=== PATIENT | female | born 1935 ===

== ENCOUNTER 2018-12-09 15:34 | Emergency (ER) | payer MEDICARE, OTHER ==
[2018-12-09 15:34] VITALS: PULSE 58
[2018-12-09 15:41] VITALS: BMI 41.1
[2018-12-09] MEDS ORDERED: Albuterol 0.083% Inhal Sol (2.5 mg/3 mL) UD IH STA ×3 (16:20→18:00)
[2018-12-09] MEDS ORDERED: Albuterol-Ipratrop 3 mg / 0.5 (3 ml) UD INH STA (16:20)
[2018-12-09] MEDS ORDERED: Albuterol-Ipratrop 3 mg / 0.5 (3 ml) UD ONE ×2 (16:26→19:02)
[2018-12-09 16:50] LABS: BASO % 0.5 % (0.0-2.0); EOS # 0.1 K/uL (0.0-0.7); EOS % 1.6 % (0.0-4.0); HEMOGLOBIN 11.7 g/dL (11.0-16.0); LYMPH # 2.3 K/uL (1.0-4.3); LYMPH % 26.2 % (20.0-40.0); MEAN CORPUSCULAR HEMOGLOBIN 28.4 pg (27.0-31.0); MEAN CORPUSCULAR HGB CONC 32.1 g/dL (33.0-37.0); MEAN PLATELET VOLUME 9.2 fL (7.2-11.7); MONO # 0.8 K/uL (0.0-0.8); MONO % 9.5 % (0.0-10.0); NEUT # 5.5 K/uL (1.8-7.0); NEUT % 62.2 % (50.0-75.0); NRBC % 0.1 % (0.0-2.0); RBC 4.12 Mil/uL (3.80-5.20); RED CELL DISTRIBUTION WIDTH 14.9 % (11.5-14.5); WHITE BLOOD COUNT 8.9 K/uL (4.8-10.8)
[2018-12-09 16:57] LABS: MEAN CELL VOLUME 88.3 fL (81.0-99.0)
[2018-12-09 16:58] LABS: VENOUS BLOOD GAS PCO2 63 mmHg (40-60); VENOUS BLOOD GAS PO2 45 mm/Hg (30-55); VENOUS BLOOD PH 7.35 (7.32-7.43)
[2018-12-09 16:58] LABS: INR 1.2; PROTHROMBIN TIME 12.9 SECONDS (9.7-12.2)
[2018-12-09 17:06] LABS: ALB/GLOB RATIO 1.1 (1.0-2.1); ALBUMIN 4.1 g/dL (3.5-5.0); ALT/SGPT 6 U/L (9-52); AST/SGOT 19 U/L (14-36); BLOOD UREA NITROGEN 29 mg/dL (7-17); CALCIUM 9.4 mg/dl (8.6-10.4); GFR NON-AFRICAN AMERICAN 43
--- NOTE | 2018-12-09 17:17 | RAD ---
Date of service: 12/09/2018 PROCEDURE: CHEST RADIOGRAPH, 1 VIEW HISTORY: SOB COMPARISON: 06/22/2016. FINDINGS: LUNGS: Clear. PLEURA: No pneumothorax or pleural fluid seen. CARDIOVASCULAR: No aortic atherosclerotic calcification present. Cardiomegaly. No evidence of acute, significant cardiovascular disease. OSSEOUS STRUCTURES: No significant abnormalities. VISUALIZED UPPER ABDOMEN: Normal. OTHER FINDINGS: None. IMPRESSION: No active disease. Pulmonary vascular congestion apparent previously has resolved.
[2018-12-09 17:18] LABS: B-TYPE NATRIURETIC PEPTIDE 568 pg/mL (0-900); CK-MB 0.69 ng/mL (0.0-3.38)
[2018-12-09] MEDS ORDERED: Sodium Chloride 0.9% 500 ML IV ONE (17:59)
--- NOTE | 2018-12-09 18:27 | C.PDOC ---
History Of Present Illness Patient presents to ED c/o nonproductive cough, body aches, nasal congestion mild SOB for approx 2-3 days. She denies fever, chest pain, abdominal pain, nausea/vomiting, diarrhea, dysuria. PMHx: DM, HTN, gastritis, hyperlipidemia, CAD, CHF, dementia, depression Time Seen by Provider: 12/09/18 15:56 Chief Complaint (Nursing): Flu-like Symptoms History Per: Patient History/Exam Limitations: no limitations Onset/Duration Of Symptoms: Days (2-3 days) Current Symptoms Are (Timing): Still Present Severity: Mild Past Medical History Reviewed: Historical Data, Nursing Documentation, Vital Signs Vital Signs: Last Vital Signs Temp 97.9 F 12/09/18 15:43 Pulse 81 12/09/18 15:43 Resp 22 12/09/18 15:43 BP 141/63 12/09/18 15:43 Pulse Ox 94 L 12/09/18 15:43 - Medical History PMH: Anemia, Anxiety, Arthritis, CAD, CHF, Dementia, Depression, Diabetes, Gastritis, HTN, Hypercholesterolemia, Peripheral Edema Comment Only: Asthma (?) Surgical History: CABG (x3) - [facility] Procedures CONTRAST AORTOGRAM (01/04/14) CORONAR ARTERIOGR-2 CATH (01/04/14) LEFT HEART CARDIAC CATH (01/04/14) LT HEART ANGIOCARDIOGRAM (01/04/14) Family History: States: No Known Family Hx - Social History Hx Tobacco Use: No Hx Alcohol Use: No Hx Substance Use: No - Immunization History Hx Tetanus Toxoid Vaccination: No Hx Influenza Vaccination: Yes Hx Pneumococcal Vaccination: No Review Of Systems Constitutional: Negative for: Fever, Chills ENT: Positive for: Nose Congestion Cardiovascular: Negative for: Chest Pain, Palpitations Respiratory: Positive for: Cough, Shortness of Breath Gastrointestinal: Negative for: Nausea, Vomiting, Abdominal Pain, Diarrhea Genitourinary: Negative for: Dysuria, Hematuria Skin: Negative for: Rash Neurological: Negative for: Weakness, Numbness, Headache, Dizziness Physical Exam - Physical Exam Appears: Well, Non-toxic, No Acute Distress, Other (speaking in full sentences) Skin: Normal Color, Warm, Dry, No Rash Eye(s): bilateral: Normal Inspection Oral Mucosa: Moist Tongue: Other (clear rhinorrhea) Cardiovascular: Rhythm Regular Respiratory: No Accessory Muscle Use, No Rales, No Rhonchi, Wheezing (expiratory wheezing B/L ) Gastrointestinal/Abdominal: Normal Exam, Bowel Sounds, Soft, No Tenderness Extremity: Pedal Edema (chronic B/L edema, +3 with chronic skin changes), No Calf Tenderness Pulses: Left Dorsalis Pedis: Normal, Right Dorsalis Pedis: Normal Neurological/Psych: Oriented x3 ED Course And Treatment - Laboratory Results Result Diagrams: 12/09/18 16:46 12/09/18 16:46 Lab Results: pO2 45 mm/Hg (30-55) 12/09/18 16:55 VBG pH 7.35 (7.32-7.43) 12/09/18 16:55 VBG pCO2 63 mmHg (40-60) H 12/09/18 16:55 VBG HCO3 29.9 mmol/L 12/09/18 16:55 VBG Total CO2 36.7 mmol/L (22-28) H 12/09/18 16:55 VBG O2 Sat (Calc) 83.8 % (40-65) H 12/09/18 16:55 VBG Base Excess 7.0 mmol/L (0.0-2.0) H 12/09/18 16:55 VBG Potassium 4.1 mmol/L (3.6-5.2) 12/09/18 16:55 Sodium 137.0 mmol/l (132-148) 12/09/18 16:55 Chloride 98.0 mmol/L (98-107) 12/09/18 16:55 Glucose 268 mg/dl (65-105) H 12/09/18 16:55 Lactate 2.4 mmol/L (0.7-2.1) H 12/09/18 16:55 PT 12.9 SECONDS (9.7-12.2) H 12/09/18 16:46 INR 1.2 12/09/18 16:46 APTT 32 SECONDS (21-34) 12/09/18 16:46 Troponin I < 0.0120 ng/mL (0.00-0.120) 12/09/18 16:46 NT-Pro-B Natriuret Pep 568 pg/mL (0-900) 12/09/18 16:46 Total Bilirubin 0.3 mg/dL (0.2-1.3) 12/09/18 16:46 AST 19 U/L (14-36) 12/09/18 16:46 ALT 6 U/L (9-52) L D 12/09/18 16:46 Alkaline Phosphatase 114 U/L (38-126) 12/09/18 16:46 Total Protein 7.9 g/dL (6.3-8.3) 12/09/18 16:46 Albumin 4.1 g/dL (3.5-5.0) 12/09/18 16:46 Globulin 3.9 gm/dL (2.2-3.9) 12/09/18 16:46 Albumin/Globulin Ratio 1.1 (1.0-2.1) 12/09/18 16:46 O2 Sat by Pulse Oximetry: 94 (RA) Pulse Ox Interpretation: Normal Progress Note: Blood work, CXR, EKG ordered and reviewed. Patient given IV NS bolus, IV solumedrol and albuterol neb treatments. Disposition Counseled Patient/Family Regarding: Studies Performed, Diagnosis, Need For Followup, Rx Given - Disposition Referrals: Ladan Donis MD [Medical Doctor] - Disposition: HOME/ ROUTINE Disposition Time: 18:45 Condition: STABLE Additional Instructions: FOLLOW UP WITH YOUR DOCTOR/CLINIC IN 1-2 DAYS USE MEDICATIONS DIRECTED RETURN TO EMERGENCY ROOM IF YOUR SYMPTOMS BECOME WORSE SEGUIR CON PAYNE MDICO / CLNICA EN 1-2 BERNAL UTILICE MEDICAMENTOS JOSE GUADALUPE SE DIRIGE VUELVA A LA JESUS DE EMERGENCIA SI SHIRA SNTOMAS SE HACEN PEOR Prescriptions: Albuterol HFA [Ventolin HFA 90 mcg/actuation (8 g)] 0.09 mg IH Q4 PRN #1 puff PRN Reason: Wheezing Benzonatate [Tessalon Perles] 100 mg PO BID PRN #15 sgl PRN Reason: Cough predniSONE [predniSONE Tab] 40 mg PO DAILY #6 tab Instructions: Viral Syndrome (DC), Wheezing Forms: [employer] (Montserratian) Print Language: BULGARIAN - Clinical Impression Clinical Impression: Viral upper respiratory infection, Bronchospasm
[2018-12-09 18:41] LABS: VENOUS BLOOD GAS PCO2 52 mmHg (40-60); VENOUS BLOOD GAS PO2 30 mm/Hg (30-55)
[2018-12-09 19:42] VITALS: BP 143/82; PULSE 79; RESP 20; TEMP 98.4; O2SAT 96
--- NOTE | 2018-12-12 12:21 | CARD ---
APPROVED REPORT Date of service: 12/09/2018 EKG Measurement Heart [id number] <Conclusion> Sinus rhythm with 1st degree AV block Inferior infarct, age undetermined Anterior infarct, age undetermined T wave abnormality, consider lateral ischemia Abnormal ECG
== END 2018-12-09 19:41 | disposition home or self-care (01) ==
LOC: C.ER 15:34
DX: J06.9 Acute upper respiratory infection, unspecified (principal); J98.01 Acute bronchospasm; I25.10 Atherosclerotic heart disease of native coronary artery without angina pectoris; I11.0 Hypertensive heart disease with heart failure; I50.9 Heart failure, unspecified; E11.9 Type 2 diabetes mellitus without complications; E78.00 Pure hypercholesterolemia, unspecified; F03.90 Unspecified dementia, unspecified severity, without behavioral disturbance, psychotic disturbance, mood disturbance, and anxiety; Z95.1 Presence of aortocoronary bypass graft
CPT/HCPCS: 71045; 80053; 82550; 82553; 82803; 83880; 84484; 85025; 85610; 85730; 87040; 87804; 93005; 94640; 96374; 99282; J2930